=== PATIENT | female | born 1950 | race Two or more races ===

== ENCOUNTER 2021-07-16 12:32 | Emergency (ER) | payer OTHER ==
[~2021-07-16] VITALS: Ht 154.9 cm; Wt 68.0 kg
[2021-07-16 16:03] VITALS: BP 121/58
[2021-07-16] MEDS ORDERED: diphenhdrAMINE HCL 50 MG/1 ML VL IM ONE (16:15)
[2021-07-16] MEDS ORDERED: methylPREDNISolone SOD SUCC 125 MG/2 ML VL IM ONE (16:15)
[2021-07-16] MEDS ORDERED: PRED20TA2 PO (16:47)
[2021-07-16] MEDS ORDERED: DIPH25CA66 PO (16:47)
== END 2021-07-16 16:54 | disposition home or self-care (01) ==
LOC: ER 12:32
DX: T78.40XA Allergy, unspecified, initial encounter (principal); X58.XXXA Exposure to other specified factors, initial encounter
CPT/HCPCS: 96372; 99284; J1200; J2930